=== PATIENT | female | born 1965 | race Caucasian/White ===

== ENCOUNTER 2022-12-25 08:33 | Day surgery (SDC) | payer OTHER, SELFPAY ==
[2022-12-25 08:42] VITALS: BMI 27.1
[2022-12-25] MEDS: Lactated Ringers 1,000 ML 50 ML IVCONT (09:07)
[2022-12-25 09:13] VITALS: BP 111/83; PULSE 93; RESP 18; TEMP 36.8; O2SAT 98
--- NOTE | 2022-12-25 10:22 | MHC.SHP ---
Pre-Procedural Eval Section A Date of Service: 12/25/22 Section B Chief Complaint: screening,reflux,dysphagia Details of Present Illness: see H&P Relevant Family History (Specify if Yes): No Relevant Social History: None Present Medications: see Short Stay Collaborative assessment Medical History: No relevant PMH Allergies: Allergies Allergy/AdvReac Type Severity Reaction Status Date / Time Penicillins [PCN] Allergy Hives Verified 12/25/22 09:13 Review of Systems Sugical H&P ROS: Negative: Constitution, Cardiovascular, Respiratory, Neurological, Psychiatric, Hem-Onc, Allergic/Immunologic, Gastrointestinal, Genitourinary, Musculoskeletal, Integumentary, Endocrine and Eyes/Ears/Nose/Throat Exam Surgical H&P Exam: Normal: HEENT, Normal: Heart, Normal: Lungs, Normal: Extremities, Normal: Abdomen, Normal: Skin and Normal: Neurological Plan Diagnosis/Plan: Unchanged I have reviewed the history and physical and performed a pertinent physical examination on my patient. No changes have occurred unless specified. Time Spent With Patient Time: Total time managing care of this patient today ____ minutes.
--- NOTE | 2022-12-25 10:47 | HO.ANESPROP2 ---
[facility] Past Medical History Medical History Asthma GERD (gastroesophageal reflux disease) Surgical History Surgical History H/O colonoscopy History of bilateral carpal tunnel release History of bladder suspension procedure Social History Social History Patient Tobacco Use Status: Current everyday Tobacco user Are you DNR?: No Advance Directives: No Advance Directives Information Provided: Yes Nutrition Risks: No Nutritional Risk Meds Allergies Allergy/AdvReac Type Severity Reaction Status Date / Time Penicillins [PCN] Allergy Hives Verified 12/25/22 09:13 Active Medications: Current Medications Lactated Ringer's (Lr) 1,000 mls @ 50 mls/hr IVCONT .Q20H DIMAS Last Admin: 12/25/22 09:07 Dose: 50 mls/hr Home Medications Medication Instructions Recorded Confirmed Last Taken Type fluticasone 250 mcg-salmeterol 50 1 ea inhalation BID 12/24/22 12/24/22 Unknown History mcg/dose blistr powdr for inhalation (Advair Diskus) varenicline 1 mg tablet PO 12/24/22 12/24/22 Unknown History Exam Exam Date and Time: December 25, 2022 1047 Height,Weight and Vital Signs: Height 5 ft Weight 63.049 kg Last Vital Signs Temp 98.2 F 12/25/22 09:13 Pulse 93 12/25/22 09:13 Resp 18 12/25/22 09:13 BP 111/83 12/25/22 09:13 Pulse Ox 98 12/25/22 09:13 O2 Del Method Room Air 12/25/22 09:13 Airway Mallampati Class: II TM Dist: >3cm Neck ROM: Full Heart: RRR Lungs: CTA Assessment and Plan Final Anesthetic Review ASA Class: II Final Preanesthetic Review: Meds/Allgs Chart Reviewed, Consent Obtained/Reviewed and Anes Risks/Benef Reviewed Anesthetic Plan Anesthetic Plan: MAC: Disposition: Standard PACU
[2022-12-25 11:05] VITALS: BP 84/43; PULSE 82; RESP 16; TEMP 36.2; O2SAT 93
--- NOTE | 2022-12-25 11:06 | PM.OP ---
Brief Operative Note Date of Service: 12/25/22 Pre-op diagnosis: gerd screening Post-op diagnosis: same Surgeon: Spike Lindsay Anesthesia: MAC Was an Cuff Runner used for this Procedure?: No Estimated blood loss (mL): 2 Pathology: other Condition: stable Disposition: PACU
[2022-12-25 11:10] VITALS: BP 91/42; PULSE 89; RESP 16; O2SAT 93
[2022-12-25 11:20] VITALS: BP 91/42; PULSE 75; RESP 16; TEMP 36.2; O2SAT 97
--- NOTE | 2022-12-25 12:02 | OP_ITS ---
DATE OF SERVICE: 12/25/2022 SURGEON: Spike Lindsay MD INDICATIONS: 1. Gastroesophageal reflux disease. 2. Dysphagia. 3. Colon cancer screening. PREOPERATIVE DIAGNOSIS: POSTOPERATIVE DIAGNOSIS: PROCEDURE PERFORMED: Upper endoscopy with biopsy, colonoscopy to the terminal ileum. ESTIMATED BLOOD LOSS: COMPLICATIONS: ANESTHESIA: Monitored anesthesia care. ASSISTANTS: SPECIMENS: DESCRIPTION OF PROCEDURE: A history and physical was performed. The risks and benefits of the procedure were explained to the patient. Informed consent was obtained. The patient was placed in the left lateral decubitus position. A digital rectal exam was performed prior to the colonoscopy, was found to be normal. First, the Olympus video gastroscope was introduced into the esophagus, stomach, and duodenum. Examination was performed. The scope was removed. She was repositioned for colonoscopy. The Olympus pediatric video colonoscope was introduced into the rectum and advanced to the cecum without difficulty. The cecum was identified by transillumination, palpation, and identification of the ileocecal valve. Examination was performed. The scope was removed. She tolerated both procedures well and was returned to the recovery area in stable condition. FINDINGS: Upper endoscopy: 1. Esophagus: The esophagus was normal. 2. Stomach: The stomach showed no evidence of masses, ulcers, or polyps. 3. Duodenum: The bulb and 2nd portion were normal. Biopsies were obtained at 30 cm at the EG junction and in the antrum. Colonoscopy: The terminal ileum was normal. The visualized colonic mucosa was normal. The quality of prep was good. There was moderate sigmoid diverticulosis with scattered diverticula throughout the remainder of the colon. No polyps were identified. Retroflexed examination was normal. IMPRESSION: 1. Gastroesophageal reflux disease. 2. Normal colonoscopy. RECOMMENDATION: 1. Follow up the biopsy results. 2. Repeat colonoscopy is recommended in 10 years for average risk individuals. MD SANDY Enamorado/KENYA / [id number]
== END 2022-12-25 12:05 | disposition home or self-care (01) ==
PROVIDERS: PCP Nurse Practitioner Adult Health; Visit Provider Internal Medicine Gastroenterology
PROC: (CPT 45380; principal; 2022-12-25 09:50)
DX: Z12.11 Encounter for screening for malignant neoplasm of colon (principal); Z86.010 Personal history of colon polyps; K57.30 Diverticulosis of large intestine without perforation or abscess without bleeding; K21.9 Gastro-esophageal reflux disease without esophagitis; K29.50 Unspecified chronic gastritis without bleeding; R13.10 Dysphagia, unspecified; J45.909 Unspecified asthma, uncomplicated; Z79.51 Long term (current) use of inhaled steroids; Z88.0 Allergy status to penicillin; F17.210 Nicotine dependence, cigarettes, uncomplicated
CPT/HCPCS: 45380; 88305; 88342